=== PATIENT | female | born 2000 | race African-American/Black ===

== ENCOUNTER 2021-10-16 17:31 | Emergency (ER) | payer OTHER ==
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
--- NOTE | 2021-10-16 17:43 | EDPHYS ---
Physician Documentation [facility] Name: Martha Mccracken Age: 20 yrs Sex: Female : 2000 Arrival Date: 10/16/2021 Time: 17:32 Bed Waiting Private MD: ED Physician Rolando Beckman HPI: 10/16 20:18 This 20 yrs old Black Female presents to ER via Ambulatory with complaints of Itching, kb Hives. 20:18 The patient's rash thought to be caused by allergies. The rash is located on the left kb arm and right arm and face. Onset: The symptoms/episode began/occurred just prior to arrival. Associated signs and symptoms: Pertinent positives: itching, Pertinent negatives: burning sensation, difficulty breathing, fever, nausea, Pain swelling of lips, swelling of throat, swelling of tongue, vomiting, wheezing. Severity of symptoms: At their worst the symptoms were mild in the emergency department the symptoms are unchanged. The patient has not experienced similar symptoms in the past. The patient has not recently seen a physician. Pt reports she used a blower at the [employer] plant, developed a rash and itching so she came in. States she has never had an allergic reaction before so she was concerned about it getting worse. 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 - Social history:: Smoking status: Patient reports the use of cigarette tobacco products, smokes one-half pack cigarettes per day. ROS: 20:17 Constitutional: Negative for fever, chills, and weight loss. kb 20:17 Skin: Positive for rash, of the face, right arm and left arm. 20:17 All other systems are negative. Exam: 20:17 Constitutional: This is a well developed, well nourished patient who is awake, alert, kb and in no acute distress. Head/Face: Normocephalic, atraumatic. ENT: Moist Mucous membranes Respiratory: Respirations even and unlabored. No increased work of breathing. Talking in full sentences MS/ Extremity: Pulses equal, no cyanosis. Neurovascular intact. Full, normal range of motion. Neuro: Awake and alert, GCS 15, oriented to person, place, time, and situation. Moves all extremities. Normal gait. Psych: Awake, alert, with orientation to person, place and time. Behavior, mood, and affect are within normal limits. 20:17 Skin: rash a mild rash is noted, rash can be described as nonspecific, on the face, right arm and left arm. Vital Signs: 17:38 BP 168 / 100; Pulse 84; Resp 18; Temp 98.8; Pulse Ox 100% ; Weight 56.25 kg; Height 5 ap3 ft. 2 in. (157.48 cm); 17:38 Body Mass Index 22.68 (56.25 kg, 157.48 cm) ap3 MDM: 17:41 Patient medically screened. kb 20:15 Data reviewed: vital signs, nurses notes. Data interpreted: Pulse oximetry: on room air kb is 100 %. Interpretation: normal. Counseling: I had a detailed discussion with the patient and/or guardian regarding: the historical points, exam findings, and any diagnostic results supporting the discharge/admit diagnosis, the need for outpatient follow up, a family practitioner, to return to the emergency department if symptoms worsen or persist or if there are any questions or concerns that arise at home. Administered Medications: No medications were administered Disposition Summary: 10/16/21 17:42 Discharge Ordered Location: Home kb Condition: Stable kb Diagnosis - Rash and other nonspecific skin eruption kb Followup: kb - With: Emergency Department - When: As needed - Reason: Worsening of condition Followup: kb - With: Private Physician - When: 2 - 3 days - Reason: Recheck today's complaints, Continuance of care, Re-evaluation by your physician Discharge Instructions: - Discharge Summary Sheet kb - Rash, Adult, [id number] kb - Allergies, Adult, Ancr-gk-Czty kb Forms: - Medication Reconciliation Form kb - Thank You Letter kb - Antibiotic Education kb - Prescription Opioid Use kb - Work release form ap3 Prescriptions: - Pepcid 20 mg Oral Tablet - take 1 tablet by ORAL route every 12 hours for 5 days; 10 tablet; Refills: 0, kb Product Selection Permitted - Prednisone 20 mg Oral Tablet - take 1 tablet by ORAL route once daily for 5 days; 5 tablet; Refills: 0, kb Product Selection Permitted Signatures: Gianna Brooks FNP-C FNP-Ckb Amna Romero, RN RN ap3
--- NOTE | 2021-10-16 17:43 | ER ---
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 She states that approx 15 minutes into the work she began getting itchy and noticing changes on her skin. Coronavirus screen: At this time, the client does not indicate any symptoms associated with coronavirus-19. Ebola Screen: No symptoms or risks identified at this time. Onset: The symptoms/episode began/occurred today. Anaphylaxis evaluation, no signs or symptoms of anaphylaxis were noted. Initial Sepsis Screen: Does the patient meet any 2 criteria? No. Patient's initial sepsis screen is negative. Does the patient have a suspected source of infection? No. Patient's initial sepsis screen is negative. Risk Assessment: Do you want to hurt yourself or someone else? Patient reports no desire to harm self or others. Onset of symptoms was October 16, 2021. 17:38 Method Of Arrival: Ambulatory ap3 17:38 Acuity: ЕЛЕНА 4 ap3 Triage Assessment: 17:42 General: Appears in no apparent distress. Behavior is calm, cooperative, appropriate ap3 for age. Pain: Denies pain. Neuro: Level of Consciousness is awake, alert, obeys commands, Oriented to person, place, time, situation. Cardiovascular: Patient's skin is warm and dry. Respiratory: Airway is patent Respiratory effort is even, unlabored, Respiratory pattern is regular, symmetrical. Derm: Rash noted that is itchy. 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 - Social history:: Smoking status: Patient reports the use of cigarette tobacco products, smokes one-half pack cigarettes per day. Screenin:41 Abuse screen: Denies threats or abuse. Nutritional screening: No deficits noted. ap3 Tuberculosis screening: No symptoms or risk factors identified. 17:43 Fall Risk None identified. ap3 Assessment: 17:41 Respiratory: Airway is patent Respiratory effort is even, unlabored, Breath sounds are ap3 clear. Vital Signs: 17:38 BP 168 / 100; Pulse 84; Resp 18; Temp 98.8; Pulse Ox 100% ; Weight 56.25 kg; Height 5 ap3 ft. 2 in. (157.48 cm); 17:38 Body Mass Index 22.68 (56.25 kg, 157.48 cm) ap3 ED Course: 17:32 Patient arrived in ED. as 17:35 Gianna Brooks FNP-C [facility]. kb 17:35 Rolando Beckman MD is Attending Physician. kb 17:41 Triage completed. ap3 17:42 Arm band placed on right wrist. ap3 17:42 No provider procedures requiring assistance completed. Patient did not have IV access ap3 during this emergency room visit. 17:43 Patient has correct armband on for positive identification. Bed in low position. Call ap3 light in reach. Pulse ox on. NIBP on. Administered Medications: No medications were administered Medication: 17:43 VIS not applicable for this client. ap3 Outcome: 17:42 Discharge ordered by . kb 18:03 Discharged to home ambulatory. ap3 18:03 Condition: good 18:03 Discharge instructions given to patient. 18:03 Patient left the ED. ap3 Signatures: Gianna Brooks FNP-C FNP-Ckb Martinez, Amelia as Prokisch, Amanda, RN RN ap3
[2021-10-16 18:41] VITALS: BP 168/100; TEMP 98.8; O2SAT 100
== END 2021-10-16 18:03 | disposition home or self-care (01) ==
LOC: ER 17:31
DX: R21 Rash and other nonspecific skin eruption (principal); F17.210 Nicotine dependence, cigarettes, uncomplicated
CPT/HCPCS: 99283

== ENCOUNTER 2021-11-06 18:55 | Emergency (ER) | payer OTHER ==
--- OUTSIDE RECORDS SUMMARY | 2021-11-06 18:59 | XMS REPORT | Continuity of Care Document ---
:2000 Author Organization [facility] t Address [address] [place] [address] Care Team Providers Name Role Phone [email or web address] Attending Clinician Unavailable Mary Kay Vasquez Attending Clinician [phone] Spike Santacruz Attending Clinician Unavailable Elisabet Bartholomew Attending Clinician [phone] Patricia Villela Attending Clinician Unavailable Kim Gamboa Attending Clinician Unavailable Ernesto Encarnacion Attending Clinician Unavailable Jeremiah Quintero Admitting Clinician Unavailable Mary Kay Vasquez Unavailable [phone] Payers Payer Name Policy Type Policy Number Effective Date Expiration Date S cary Self Pay P [id number] 2021 00:00:00 Self Pay P [id number] 2020 00:00:00 Problems Condition Condition Condition Status Onset Resolution Last Treating Co mments Source Name Details Category Date Date Treatment Clinician Date PROBLEM Condition Active 2019-11-13 Stefan Vasquez R/T 11-12 15:39:16 Mary Kay Reyesi ACCESS, 00:00: ty OTHER 00 Health HELPING AGENCIES BIPOLAR Condition Active 2019-10-01 Stefan Vasquez AND 09-30 18:07:58 [facility]ica Communi RELATED 00:00: ty DISORDER, 00 Health OTHER SPECIFIED SLEEP-WAKE Condition Active 2019-10-01 Stefan Vasquez DISORDER, 09-30 18:07:58 Vic[facility] Comm uni OTHER 00:00: ty SPECIFIED 00 Health NONADHEREN Condition Active 2019-09-10 Stefan Vasquez CE TO 09-09 14:27:47 Vica Erici MEDICAL 00:00: ty TREATMENT 00 Health Allergies, Adverse Reactions, Alerts Allergy Allergy Status Severity Reaction(s) Onset Inactive Treating Comm ents Source Name Type Date Date Clinician Gailfis Propensi [facility] Cont[facility] adverse 00:00: Medical ng reaction 00 Center Products s SHELLFIS Allergy Active [facility] CONTAINI 00:00: Medical NG 00 Center PRODUCTS No Known DA Active [facility]19 [place] s 00:[facility] [address] No Known DA Active [facility] 1-19 [place] [facility] 00:[facility]: [facility] [address] shellfis DA Active [facility] [place] NO KNOWN Allergy Active [facility] Social History Social Habit Start Date Stop Date Quantity Comments Source History SDOH Alcohol [facility] History of tobacco Cigarette [facility] History SDOH Alcohol [facility] History SDOH Alcohol [facility] History SDOH Alcohol 2020-09-19 2020-09-[address] [facility] Comment 00:00:00 00:00:00 Medical Center Cigarettes smoked 2020-09-19 2020-09-[address] [facility] current (pack per 00:00:00 00:00:00 Medical Center day) - Reported Tobacco use and 2020-09-19 2020-09-[address] [facility] k[facility] exposure 00:00:00 00:00:00 Medical Center Alcohol intake 2020-09-19 2020-09-19 Current drinker ELOY Castillo 00:00:00 00:00:00 of alcohol Medical Center ([facility] social history 2019-11-13 2019-11-13 reviewed today [facility] [...] she has stopped Not homeless. Born in [facility]. City: [place] . State: [place]. Pt. stated that she and her mother live together in a house. 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 Highest education level: high school graduate. Pt. recently started working at [employer]. Pt. stated that she also goes to school. Pt stated that she graduated from [employer] in 2016. Pt. stated that she is presently going to school at [employer]. Sexually Active: No. Mother stated that when pt. was 11 CPS involvement. CPS case was closed. BF was the one who contacted CPS. CPS case was closed after the first visit. drug use, illicit 2019-11-13 2019-11-13 Currently [facility] 12:47:24 12:47:24 Health alcohol use 2019-11-13 2019-11-13 [facility] 12:47:24 12:47:24 Health smoking, advice to 2019-11-13 2019-11-13 Yes [facility] quit 12:47:24 12:47:24 Health home/family 2019-10-01 2019-10-01 Pt. stated that [facility] situation, 12:25:37 12:25:37 she and her Health assessment mother live together in a house. Suicide Addendum 2019-10-01 2019-10-01 stay with family [facility] Question 12, plans 12:25:37 12:25:37 , write [...] 5, means 12:25:37 12:25:37 Health and availability Suicide Addendum 2019-10-01 2019-10-01 No [facility] Question 4, plan for 12:25:37 12:25:37 Heal th suicide Suicide Addendum 2019-10-01 2019-10-01 Yes [facility] Question 3, try to 12:25:37 12:25:37 Health resolve or see other solution Suicide Addendum 2019-10-01 2019-10-01 Yes [facility] Question 1, thoughts 12:25:37 12:25:37 Heal th of harming yourself family support 2017-08-02 2017-08-02 [facility] 14:[facility] 14:16:08 she lives with Health her mother. She moved back in with her around November of 2016. Pt. stated that she has two sisters and one brother. Only brother lives with them (21). she has stopped Sex Assigned At 2000 [address] [facility] [address] [facility] 00:00:00 00:00:00 Medical Center Smoking Status Start Date Stop Date Source Current every day smoker 2020-09-19 00:00:00 [facility] Occasional tobacco smoker 2019-11-13 12:47:24 [facility] (finding) Medications Ordered Filled Start Stop [...] kg blood pressure, 2017-08-02 14:16:08 90 mm[Hg] [facility] diastolic Health blood pressure, 2017-08-02 14:16:08 134 mm[Hg] [facility] systolic Health pulse rate 2017-08-02 14:16:08 75 /min [facility] weight E&M 2017-08-02 14:16:08 116 [lb_av] [facility] weight in kilograms 2017-08-02 14:16:08 52.73 kg [facility] E& Health height in 2017-08-02 14:16:08 157.48 cm [facility] centimeters E&M Health weight percentile 2017-08-02 14:16:08 30 [facility] height percentile 2017-08-02 14:16:08 19 [facility] Procedures Procedure Date / Time Performed Performing Clinician Sour e Diagnostic evaluation 2017-08-03 15:59:23 Mary Kay Vasquez [facility] with medical - [id number] Health Plan of Care Planned Activity Planned Date Details Comments Source Future Scheduled 2021-11-11 INFLUENZA VACCINE (#1) [facility] 00:00[facility]00 [code = INFLUENZA Medical Ce nter VACCINE (#1)] Future Scheduled 2021-03-[address] [facility] Test 00:00:00 (12+) [code = Medical Center DEPRESSION SCREENING (12+)] Future Scheduled 2019-11-[address] [facility] Test 00:00:00 malignant neoplasm of Medica l Center cervix (procedure) [code = 822617214] Future Scheduled [address] [facility] Test 00:00:00 (procedure) [code = Medical Center [id number]] Future Scheduled 2017 DTAP/TDAP/TD VACCINES [facility] 00:00:00 (1 - Tdap) [code = Medical C enter DTAP/TDAP/TD VACCINES (1 - Tdap)] Future Scheduled 2016 HEPATITIS C SCREENING [facility] 00:00:00 [code = HEPATITIS C Medical Center SCREENING] Future Scheduled [address] [facility] Test 00:00:00 0-64 YRS (1 - PCV) Medical C enter [code = PNEUMOCOCCAL VACCINE 0-64 YRS (1 - PCV)] Future Scheduled 2003-11-19 COVID-19 VACCINE (#1) [facility] Test 00:00:00 [code = COVID-[address] VACCINE (#1)] Encounters Start End Encounter Admission Attending Care Care Encounter Source Date/Time Date/Time Type Type Clinicians Facility Department ID 2021-07-21 Outpatient [email or web address] [facility] [id number] [facility] 10:55:04 [facility] 2021-05-19 Outpatient [email or web address] [facility] [id number] - [facility] 14:58:10 [facility] 2021-05-18 Outpatient [email or web address] [facility] [id number] [facility] 13:18:05 [facility] 2020-12-24 Outpatient [email or web address] [facility] [id number] [facility] 20:39:38 [facility] 2020-12-24 Outpatient [email or web address] [facility] [id number] [facility] 20:11:35 [id number] [facility] 2020-12-24 Outpatient [email or web address] [facility] [id number] - [facility] 18:57:36 [id number] [facility] 2020-12-24 Outpatient [email or web address] [facility] [id number] [facility] 18:38:07 [id number] [facility] 2020-12-24 Outpatient [email or web address] [facility] [id number] [facility] 18:22:35 [id number] [facility] 2020-12-24 Outpatient [email or web address] [facility] [id number] [facility] 18:19:42 [id number] [facility] 2020-12-24 Outpatient [email or web address] [facility] [id number] [facility] 18:06:36 [id number] [facility] 2020-12-24 Outpatient [email or web address] [facility] [id number] [facility] 17:33:30 [id number] [facility] 2020-12-[email or web address] [id number] [facility] 17:18:16 [id number] [facility] 2019-07-09 Inpatient HCANW SARI [id number] [facility] 21:31:00 [id number] [facility] 2019-03-31 Inpatient HCANW SARI [id number] [facility] 19:38:00 [id number] [facility] 2018-11-19 Outpatient MHNW MHNW [id number] MH NW 10:38:19 2020-09-19 2020-09-19 Emergency ER [facility] Emergency [id number] [facility] 17:07:00 17:07:00 2019-11-13 2019-11-13 Office CJ Vasquez [facility] Encounte r/ Legacy 00:00:00 00:00:00 Visit Mary Kay [id number] Com patrick [id number] [facility] 2019-10-11 2019-10-11 Office CJ Vasuqez [facility] Encounte r/ [facility] 00:00:00 00:00:00 Visit Mary Kay [id number] Com patrick [id number] [facility] 2019-10-11 2019-10-11 Office CJ Vasquez Encounte r/ [facility] 00:00:00 00:00:00 Visit Mary Kay [id number] Com patrick [id number] [facility] 2019-10-09 2019-10-09 Office Mary Kay Vasquez [facility] Encounter/ Legacy 00:00:00 00:00:00 Visit Spike Santacruz [id number] [address] [place] [address] [id number] [facility] 2019-10-02 2019-10-02 Office PumaCJ [facility] Encounter/ Legacy 00:00:00 00:00:00 Visit Elisabet [id number] Com patrick [id number] ty Health 2019-10-01 2019-10-01 [facility] 00:00:00 00:00:00 Visit Mary Kay [id number] Com patrick [id number] ty Health 2019-09-10 2019-09-10 Office [facility]/ [facility] 00:00:00 00:00:00 Visit Mary Kay [id number] Com patrick [id number] ty Health 2019-07-29 2019-07-29 Office [facility] En[facility]/ [facility] 00:00:00 00:00:00 Visit Elisabet [id number] Com patrick [id number] ty Health 2017-11-01 2017-11-01 Office [facility] Encounter/ [facility] 00:00:00 00:00:00 Visit Elisabet [id number] Com patrick [id number] ty Health 2017-10-11 2017-10-11 Office Bartholomew [facility] Encounter/ Legacy 00:00:00 00:00:00 Visit Elisabet [id number] Com patrick [id number] ty [facility] 2017-08-02 2017-08-02 Office Mary Kay Vasquez [facility] Encounter/ Legacy 00:00:00 00:00:00 Visit Patricia Villela [id number] [id number] ty Health 2017-06-19 2017-06-19 Office [facility] En[facility] / [facility] 00:00:00 00:00:00 Visit Kim [id number] Co mmuni [id number] ty Health 2017-06-15 2017-06-15 Office Shashank [facility] Encounter/ Legacy 00:00:00 00:00:00 Visit Ernesto [id number] Co mmuni [id number] [facility] Results Test Description Test Time Test Comments Results Result [facility] e Comments - XR L-SPINE 2019-03-31 Patient Name: 4+VIEWS 20:08:00 JAMESMARTHA Unit No: [id number] EXAMS: CPT: [id number] XR L-SPINE 4+VIEWS 70918 XR LUMBAR SPINE, 5 VIEWS HISTORY: Pain COMPARISON: None FINDINGS: Five lumbar type vertebral bodies are present. Vertebral body heights and disc spaces are maintained. No anterolisthesis is identified. No definite pars defects are seen. IMPRESSION: 1. Unremarkable lumbar series. at 2008 Reported and signed by: Lucila Londono MD CC: Ollie Hernandez Technologist: Patricia Torres Time: DAP (Gy m2): Air Kerma (mGy): Trscr Dt/Tm: 03/31/2019 (2007) by:[email or web address] Orig Print D/T: S: 03/31/2019 (2010) BATCH NO: N/A Name: MARTHA RAMIREZ [facility] Phys: INOCENTE. Ollie Hernandez APR [address] [place] : 2000 Age: 18 Sex: [place] [address] Loc: N.ERS Exam Date: 03/31/2019 Status: PRE ER PH: FAX: PAGE 1 Signed Report - XR HAND 3 + V LT 2018-07-06 Patient Name: 16:22:00 MARTHA RAMRIEZ Unit No: [id number] EXAMS: CPT CODE: [id number] XR HAND 3 + [place] [id number] LEFT HAND 3 VIEWS 07/06/2018 COMPARISON: None [...] (1622) [email or web address] Orig Print D/T: S: 07/06/2018 (7326) [facility] NAME: MARTHA RAMIREZ Radiology Department PHYS: Mayela Sexton [address] : 2000 AGE: 17 SEX: F [place], [place] [address] LOC: KRISSY PHONE #: [phone] EXAM DATE: 07/06/2018 STATUS: REG ER FAX #: [phone] RAD NO: Page 1 Signed Report - XR CHEST 1 V 2018-07-06 Patient Name: 16:06:00 MARTHA RAMIREZ Unit No: [id number] EXAMS: CPT CODE: [id number] XR CHEST 1 V [id number] CHEST 1 VIEW: 07/06/2018 COMPARISON: NONE CLINICAL [...] Land MD; Jeremiah Quintero MD Technologist: Karen Aleln, RT, CT Trnscrbd D/ (1601) [email or web address] Orig Print D/T: S: 07/06/2018 (1601) [facility] NAME: MARTHA RAMIREZ Radiology Department PHYS: Mayela Sexton [address] : 2000 AGE: 17 SEX: F [place], [place] [address] LOC: DebiERS PHONE #: [phone] EXAM DATE: 07/06/2018 STATUS: REG ER FAX #: [phone] RAD NO: Page 1 Signed Report XR Hand Complete 2018-05-19 Patient: MARTHA RAMIREZ 3+ Views Left 17:55:02 EMETERIO Date/Time05/19/2018 17:16 CSTReason for ExamFractureReportLOC ATION: [id number]: 17-year-old female who injured her left hand.COMMENT:Frontal, [...] patient's left hand. Final Dictated by: MD Arriaga Robert LDictated DT/TM: 05/19/2018 5:54 pmSigned by: MD Arriaga Robert LSigned (Electronic Signature): 05/19/2018 5:55 pm
[2021-11-06] MEDS ORDERED: IBUPROFEN 200 MG TAB PO ONE (19:33)
[2021-11-06] MEDS ORDERED: HYDROCODONE/APAP 7.5/325 MG TAB ONE (19:33)
--- NOTE | 2021-11-06 19:59 | RAD REPORT ---
EXAM DESCRIPTION: CT - Spine Lumbar Wo Con - 11/06/2021 7:51 pm CLINICAL HISTORY: pain COMPARISON: Thoracic Spine W/o Cont dated 11/06/2021 TECHNIQUE: Axial noncontrast CT imaging of the lumbar spine was performed with coronal and sagittal re-formatted images. All CT scans are performed using dose optimization technique as appropriate and may include automated exposure control or mA/KV adjustment according to patient size. FINDINGS: No acute lumbar spine fracture seen. No aggressive marrow pattern or malalignment. Numerous renal cysts of varying complexity. Intervertebral disc disease assessment is inherently limited by CT. Within these limitations, no high -grade canal stenosis suspected. IMPRESSION: No acute fracture of the lumbar spine. Numerous renal cysts of varying complexity may be secondary to polycystic kidney disease. Consider MRI follow-up for assessment of disc disease if clinically desired.
--- NOTE | 2021-11-06 20:07 | RAD REPORT ---
EXAM DESCRIPTION: CT - Thoracic Spine W/o Cont - 11/06/2021 7:52 pm CLINICAL HISTORY: pain COMPARISON: No comparisons TECHNIQUE: Axial CT imaging through the thoracic spine was performed with coronal and sagittal re-fo rmatted images. All CT scans are performed using dose optimization technique as appropriate and may include automated exposure control or mA/KV adjustment according to patient size. FINDINGS: Vertebral body heights and disc spaces are maintained. A compression fracture is not prese nt. No significant disc space narrowing. Thoracic spine alignment is within normal limits. Renal lesions likely representing cysts of varying complexity. Intervertebral disc detail is inherently limited on CT without gross findings of canal compromise. IMPRESSION: No fracture of the thoracic spine. No acute findings.
--- NOTE | 2021-11-06 21:08 | EDPHYS ---
Physician Documentation [facility] Name: Martha Mccracken Age: 20 yrs Sex: Female : 2000 Arrival Date: 11/06/2021 Time: 18:57 Bed 16 Private MD: ED Physician Sebastian Spain HPI: 11/06 19:54 This 20 yrs old Black Female presents to ER via Wheelchair with complaints of Pain All kb Over. 19:54 The patient presents with pain that is acute, with no known mechanism of injury. The kb symptoms are located in the thoracic area and lumbar area. Onset: The symptoms/episode began/occurred 2 day(s) ago. The pain radiates to the right leg and left leg. Associated signs and symptoms: Pertinent negatives: incontinence, numbness, tingling, urinary retention. The problem was sustained without known cause. Modifying factors: The patient symptoms are alleviated by nothing, the patient symptoms are aggravated by any movement. Severity of symptoms: At their worst the symptoms were moderate, in the emergency department the symptoms are unchanged. The patient has experienced similar episodes in the past, multiple times. The patient has not recently seen a physician. Pt reports she woke up with back pain 2 days ago. States pain radiates down both legs. Has had pain like this several times before due to scoliosis, this time is worse. Historical: - Allergies: 19:15 No Known Allergies; hb - PMHx: 19:15 Scoliosis; hb - Immunization history:: Adult Immunizations up to date. - Social history:: Smoking status: Patient denies any tobacco usage or history of. ROS: 19:52 Constitutional: Negative for fever, chills, and weight loss. kb 19:52 Back: Positive for pain at rest, pain with movement, radiated pain, of the thoracic area and lumbar area. 19:52 All other systems are negative. Exam: 19:52 Constitutional: This is a well developed, well nourished patient who is awake, alert, kb and in no acute distress. Head/Face: Normocephalic, atraumatic. ENT: Moist Mucous membranes Cardiovascular: Regular rate and rhythm with a normal S1 and S2. No gallops, murmurs, or rubs. No pulse deficits. Respiratory: Respirations even and unlabored. No increased work of breathing. Talking in full sentences Abdomen/GI: Soft, non-tender. No distention Skin: Warm, dry with normal turgor. Normal color. MS/ Extremity: Pulses equal, no cyanosis. Neurovascular intact. Full, normal range of motion. Neuro: Awake and alert, GCS 15, oriented to person, place, time, and situation. Moves all extremities. Normal gait. Psych: Awake, alert, with orientation to person, place and time. Behavior, mood, and affect are within normal limits. 19:52 Back: pain, that is moderate, of the thoracic area and lumbar area, ROM is painful, scoliosis Vital Signs: 19:13 BP 134 / 103; Pulse 96; Resp 16; Temp 98.1; Pulse Ox 100% on R/A; Weight 56.7 kg; hb Height 5 ft. 3 in. (160.02 cm); Pain 10/10; 21:20 BP 135 / 92; Pulse 66; Resp 16; Pulse Ox 99% on R/A; jb4 19:13 Body Mass Index 22.14 (56.70 kg, 160.02 cm) hb MDM: 19:13 Patient medically screened. kb 19:54 Data reviewed: vital signs, nurses notes. Data interpreted: Pulse oximetry: on room air kb is 100 %. Interpretation: normal. 21:07 Counseling: I had a detailed discussion with the patient and/or guardian regarding: the kb historical points, exam findings, and any diagnostic results supporting the discharge/admit diagnosis, radiology results, the need for outpatient follow up, a family practitioner, to return to the emergency department if symptoms worsen or persist or if there are any questions or concerns that arise at home. 11/06 19:16 Order name: Thoracic Spine WO Cont CT; Complete Time: 20:08 kb 11/06 19:16 Order name: CT Lumbar Spine Wo Con; Complete Time: 20:08 kb Administered Medications: 19:28 Drug: Roe (HYDROcodone-acetaminophen) (7.5 mg-325 mg) 1 tabs Route: PO; jb4 21:21 Follow up: Response: No adverse reaction; Marked relief of symptoms; Pain is decreased jb4 19:28 Drug: Ibuprofen 600 mg Route: PO; jb4 21:21 Follow up: Response: No adverse reaction; Marked relief of symptoms; Pain is decreased jb4 Disposition: 21:59 Co-signature as Attending Physician, Sebastian Spain MD I agree with the assessment and kdr plan of care. Disposition Summary: 11/06/21 21:07 Discharge Ordered Location: Home kb Condition: Stable kb Diagnosis - Low back pain kb Followup: kb - With: Emergency Department - When: As needed - Reason: Worsening of condition Followup: kb - With: Private Physician - When: 2 - 3 days - Reason: Recheck today's complaints, Continuance of care, Re-evaluation by your physician Discharge Instructions: - Discharge Summary Sheet kb - Acute Back Pain, Adult kb Forms: - Medication Reconciliation Form kb - Thank You Letter kb - Antibiotic Education kb - Prescription Opioid Use kb Prescriptions: - Cyclobenzaprine 10 mg Oral Tablet - take 1 tablet by ORAL route every 8 hours As needed; 15 tablet; Refills: 0, kb Product Selection Permitted - Diclofenac Sodium 75 mg Oral tablet,delayed release (DR/EC) - take 1 tablet by ORAL route 2 times per day As needed; 30 tablet; Refills: 0, kb Product Selection Permitted Signatures: Dispatcher [employer] EDMS Gianna Brooks, REMEDY DEVELOPER-C REMEDY DEVELOPER-Sebastian Wright MD MD [facility] Yokasta Orellana, RN RN Austen Bryan RN RN jb4
--- NOTE | 2021-11-06 21:08 | ER ---
Nurse's Notes [facility] Name: Martha Mccracken Age: 20 yrs Sex: Female : 2000 Arrival Date: 11/06/2021 Time: 18:57 Bed 16 Private MD: Diagnosis: Low back pain Presentation: 11/06 19:13 Chief complaint: Low back pain 10/10 that radiates to bilateral legs x 2 days. hb Coronavirus screen: At this time, the client does not indicate any symptoms associated with coronavirus-19. Ebola Screen: No symptoms or risks identified at this time. Initial Sepsis Screen: Does the patient meet any 2 criteria? No. Patient's initial sepsis screen is negative. Does the patient have a suspected source of infection? No. Patient's initial sepsis screen is negative. Risk Assessment: Do you want to hurt yourself or someone else? Patient reports no desire to harm self or others. Onset of symptoms was November 05, 2021. 19:13 Method Of Arrival: Wheelchair hb 19:13 Acuity: ЕЛЕНА 3 hb Historical: - Allergies: 19:15 No Known Allergies; hb - PMHx: 19:15 Scoliosis; hb - Immunization history:: Adult Immunizations up to date. - Social history:: Smoking status: Patient denies any tobacco usage or history of. Screenin:31 Abuse screen: Denies threats or abuse. Nutritional screening: No deficits noted. jb4 Tuberculosis screening: No symptoms or risk factors identified. Fall Risk None identified. Assessment: 19:31 General: Appears in no apparent distress. uncomfortable, Behavior is calm, cooperative, jb4 appropriate for age. Pain: Complains of pain in gluteal cleft Pain does not radiate. Pain currently is 10 out of 10 on a pain scale. Neuro: Level of Consciousness is awake, alert, obeys commands, Oriented to person, place, time, situation. Cardiovascular: Patient's skin is warm and dry. Respiratory: Airway is patent Respiratory effort is even, unlabored, Respiratory pattern is regular, symmetrical. GI: No signs and/or symptoms were reported involving the gastrointestinal system. : No signs and/or symptoms were reported regarding the genitourinary system. EENT: No signs and/or symptoms were reported regarding the EENT system. Derm: Skin is intact, Skin is dry, Skin is normal, Skin temperature is warm. Musculoskeletal: Circulation, motion, and sensation intact. Range of motion: intact in all extremities. 20:48 Reassessment: Patient appears in no apparent distress at this time. Patient and/or jb4 family updated on plan of care and expected duration. Pain level reassessed. Patient is alert, oriented x 3, equal unlabored respirations, skin warm/dry/pink. Pt reports feeling better. Is no longer crying, is now able to sit and lie on her back. 21:20 Reassessment: Patient appears in no apparent distress at this time. Patient and/or jb4 family updated on plan of care and expected duration. Pain level reassessed. Patient is alert, oriented x 3, equal unlabored respirations, skin warm/dry/pink. Vital Signs: 19:13 BP 134 / 103; Pulse 96; Resp 16; Temp 98.1; Pulse Ox 100% on R/A; Weight 56.7 kg; hb Height 5 ft. 3 in. (160.02 cm); Pain 10/10; 21:20 BP 135 / 92; Pulse 66; Resp 16; Pulse Ox 99% on R/A; jb4 19:13 Body Mass Index 22.14 (56.70 kg, 160.02 cm) hb ED Course: 18:57 Patient arrived in ED. rg4 19:13 [facility] kb 19:13 Sebastian Spain MD is Attending Physician. kb 19:15 Triage completed. hb 19:15 Arm band placed on. hb 19:31 Patient has correct armband on for positive identification. Bed in low position. Call jb4 light in reach. Side rails up X 1. 19:[address] Spine WO Cont CT In Process Unspecified. EDMS 19:53 CT Lumbar Spine Wo Con In Process Unspecified. EDMS 20:48 Austen Bryan, TENA is Primary Nurse. jb4 21:20 No provider procedures requiring assistance completed. Patient did not have IV access jb4 during this emergency room visit. Administered Medications: 19:28 Drug: [place] (HYDROcodone-acetaminophen) (7.5 mg-325 mg) 1 tabs Route: PO; jb4 21:21 Follow up: Response: No adverse reaction; Marked relief of symptoms; Pain is decreased jb4 19:28 Drug: Ibuprofen 600 mg Route: PO; jb4 21:21 Follow up: Response: No adverse reaction; Marked relief of symptoms; Pain is decreased jb4 Medication: 19:31 VIS not applicable for this client. jb4 Outcome: 21:07 Discharge ordered by . linda 21:20 Discharged to home ambulatory, with friend. jb4 21:20 Condition: stable 21:20 Discharge instructions given to patient, Instructed on discharge instructions, follow up and referral plans. no drinking with medication, no driving heavy equipment, medication usage, Demonstrated understanding of instructions, follow-up care, medications, Prescriptions given X 2. 21:21 Patient left the ED. jb4 Signatures: Dispatcher [employer] EDMS Gianna Brooks, TUNE UP MECHANIC-C TUNE UP MECHANIC-Yokasta Obando, RN RN Purnima Driver rg4 Austen Bryan, RN RN jb4
[2021-11-07 00:32] VITALS: TEMP 98.1
[2021-11-07 00:34] VITALS: BP 135/92; O2SAT 99
== END 2021-11-06 21:21 | disposition home or self-care (01) ==
LOC: ER 18:55
DX: M54.50 Low back pain, unspecified (principal)
CPT/HCPCS: 72128; 72131; 99283

== ENCOUNTER 2022-03-07 07:36 | Emergency (ER) | payer OTHER ==
--- OUTSIDE RECORDS SUMMARY | 2022-03-07 07:40 | XMS REPORT | Continuity of Care Document ---
:2000 Author Organization [facility] t Address [address] [place] [address] Care Team Providers Name Role Phone Mary Kay Vasquez Attending Clinician [phone] Spike Santacruz Attending Clinician Unavailable Elisabet Bartholomew Attending Clinician [phone] Patricia Villela Attending Clinician Unavailable Kim Gamboa Attending Clinician Unavailable Ernesto Encarnacion Attending Clinician Unavailable Jeremiah Quintero Admitting Clinician Unavailable Mary Kay Vasquez Unavailable [id number] Payers Payer Name Policy Type Policy Number Effective Date Expiration Date S ource Problems Condition Condition Condition Status Onset Resolution Last Treating Co mments Source Name Details Category Date Date Treatment Clinician Date PROBLEM Condition Active 2019-11-13 Stefan Vasquez R/T 11-12 15:39:16 Mary Kay Garcia ACCESS, 00:00: ty OTHER 00 Health HELPING AGENCIES BIPOLAR Condition Active 2019-10-01 Miles Vasquez 09-30 18:07:58 [facility] RELATED 00:00: ty DISORDER, 00 Health OTHER SPECIFIED SLEEP-WAKE Condition Active 2019-10-01 Stefan Vasquez DISORDER, 09-30 18:07:58 [facility] OTHER 00:00: ty SPECIFIED 00 Health NONADHEREN Condition Active 2019-09-10 Stefan Vasquez CE TO 09-09 14:27:47 Mary Kay Communi MEDICAL 00:00: ty TREATMENT 00 Health Allergies, Adverse Reactions, Alerts Allergy Allergy Status Severity Reaction(s) Onset Inactive Treating Comm ents Source Name Type Date Date Clinician SHELLFIS [facility]:00: Medical NG 00 Center PRODUCTS Shellfis Propensi Active [facility] Contain[facility] adverse 00:00: Medical ng reaction 00 Center Products s Shellfis Propensi [facility] Cont[facility] adverse 00:00: Medical ng reaction 00 Center Products s No Known DA Active [facility] [place] [facility] [address] No Known DA Active U 0 [facility] 00:[facility]: [facility] [address] shellfis DA Active [facility] 00 [facility] NO KNOWN Allergy Active [facility] Social History Social Habit Start Date Stop Date Quantity Comments Source History SDOH Alcohol [facility] History SDOH Alcohol [facility] History SDOH Alcohol [facility] History of tobacco Cigarette Smoker [facility] History SDOH Alcohol 2020-09-19 2020-09-[address] [facility] Comment 00:00:00 00:00:00 Medical Center Cigarettes smoked 2020-09-19 2020-09-[address] [facility] current (pack per 00:00:00 00:00:00 Medical Center day) - Reported Tobacco use and 2020-09-19 2020-09-[address] [facility] exposure 00:00:00 00:00:00 Medical Center Alcohol intake 2020-09-192020-09-19 Current drinker ELOY Castillo 00:00:00 00:00:00 of [facility] social history 2019-11-13 2019-11-13 reviewed today [facility] reviewed E&M 12:47:24 12:47:24 Health social history E&M 2019-11-13 2019-11-13 Single. Pt. [facility] 12:47:24 12:47:24 stated that she Health lives with her mother. She moved back in with her around November of 2016. Pt. stated that she has two sisters and one brother. Only brother lives with them (21). she has stopped Not homeless. Born in [facility]. City: [place] . State: [place]. Pt. stated that she and her mother live together in a house. 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 Highest education level: high school graduate. Pt. recently started working at [employer]. Pt. stated that she also goes to school. Pt stated that she graduated from [employer] in 2016. Pt. stated that she is presently going to school at [employer]. Sexually Active: No. Mother stated that when pt. was 11 CPS involvement. CPS case was closed. was the one who contacted CPS. CPS case was closed after the first visit. drug use, illicit 2019-11-13 2019-11-13 Currently [facility] 12:47:24 12:47:24 Health alcohol use 2019-11-13 2019-11-13 Currently [facility] ity 12:47:24 12:47:24 Health smoking, advice to 2019-11-13 2019-11-13 Yes [facility] quit 12:47:24 12:47:24 Health home/family 2019-10-01 2019-10-01 Pt. stated that [facility] situation, 12:25:37 12:25:37 she and her Health assessment mother live together in a house. Suicide Addendum 2019-10-01 2019-10-01 stay with family [facility] Question 12, plans 12:25:37 12:25:37 , [...] ommunity Question 1, thoughts 12:25:37 12:25:37 Heal of harming yourself family support 2017-08-02 2017-08-02 Pt. stated that [facility] 14:16:08 14:16:08 she lives with Health her mother. She moved back in with her around November of 2016. Pt. stated that she has two sisters and one brother. Only brother lives with them (21). she has stopped Sex Assigned At [birth year] [facility] 00:00:00 00:00:00 [facility] Center Smoking Status Start Date Stop Date Source Current every day smoker 2020-09-19 00:00:00 [facility] Occasional tobacco smoker 2019-11-13 12:47:24 [place] [facility] (finding) Medications Ordered Filled Start Stop Current [...] kg blood pressure, 2017-08-02 14:16:08 90 mm[Hg] [facility] diastolic Health blood pressure, 2017-08-02 14:16:08 134 mm[Hg] [facility] systolic Health pulse rate 2017-08-02 14:16:08 75 /min [facility] Health weight E&M 2017-08-02 14:16:08 116 [lb_av] [facility] weight in kilograms 2017-08-02 14:16:08 52.73 kg [facility] E&M Health height in 2017-08-02 14:16:08 157.48 cm [facility] centimeters E&M Health weight percentile 2017-08-02 14:16:08 30 [facility] height percentile 2017-08-02 14:16:08 19 [facility] Procedures Procedure Date / Time Performed Performing Clinician [facility] e Diagnostic evaluation 2017-08-03 15:59:23 Mary Kay Vasquez [facility] with medical - [id number] Health Plan of Care Planned Activity Planned Date Details Comments Source Future Scheduled 2021-11-11 INFLUENZA VACCINE (#1) [facility] 00:[facility]00 [code = INFLUENZA Medical Ce nter VACCINE (#1)] Future Scheduled 2021-11-11 INFLUENZA VACCINE (#1) [facility] 00:00:00 [code = INFLUENZA Medical Ce nter VACCINE (#1)] Future Scheduled 2021-09-[address] [facility] Test 00:00:00 [facility]ing [facility] Medical Cente r Screening (12+) [code = Tobacco Cessation Counseling and Screening (12+)] Future Scheduled 2021-03-[address] [facility] Test 00:00:00 (12+) [code = Medical Center DEPRESSION SCREENING (12+)] Future Scheduled 2021-03-[address] [facility] Test 00:00:00 (12+) [code = Medical Center DEPRESSION SCREENING (12+)] Future Scheduled 2019-11-[address] [facility] 00:00:00 [facility] cervix (procedure) [code = 675997775] Future Scheduled 2019-11-[address] [facility] Test 00:00:00 malignant neoplasm of Medica l Center cervix (procedure) [code = 263714656] Future Scheduled [address] [facility] Test 00:00:00 (procedure) [code = [facility] [id number]] Future Scheduled [address] [facility] Test 00:00:00 (procedure) [code = [facility] [id number]] Future Scheduled 2017 DTAP/TDAP/TD VACCINES [facility] 00:00:00 (1 - Tdap) [code = Medical C enter DTAP/TDAP/TD VACCINES (1 - Tdap)] Future Scheduled 2017 DTAP/TDAP/TD VACCINES [facility] 00:00:00 (1 - Tdap) [code = Medical C enter DTAP/TDAP/TD VACCINES (1 - Tdap)] Future Scheduled 2016 HEPATITIS C SCREENING [facility] 00:00:00 [code = HEPATITIS C Medical Center SCREENING] Future Scheduled 2016 HEPATITIS C [facility]CRE[facility]ING [facility] 00:00:00 [code = HEPATITIS C Medical Center SCREENING] Future Scheduled [address] [facility] Test 00:00:00 0-64 YRS (1 - PCV) Medical C enter [code = PNEUMOCOCCAL VACCINE 0-64 YRS (1 - PCV)] Future Scheduled [address] [facility] Test 00:00:00 0-64 YRS (1 - PCV) Medical C enter [code = PNEUMOCOCCAL VACCINE 0-64 YRS (1 - PCV)] Future Scheduled 2003-11-19 COVID-19 VACCINE (#1[facility] 00:00:00 [code = COVID-[address] VACCINE (#1)] Future Scheduled 1999-05-19 COVID-19 VACCINE (#1[facility] 00:00:00 [code = COVID-[address] VACCINE (#1)] Encounters Start End Encounter Admission Attending Care Care Encounter Source Date/Time Date/Time Type Type Clinicians Facility Department ID 2019-07-09 Inpatient HCANW SARI [id number] [facility] 21:31:00 71 [facility] [place] are Located within [facility] 2019-03-31 Inpatient HCANW SARI [id number] [facility] 19:38:00 48 [facility] [place] are Located within [facility] 2018-11-19 Outpatient [facility] [id number] [facility] 10:38:19 2020-09-19 2020-09-19 Emergency ER [facility] Emergency [id number] [facility] 17:07:00 17:07:00 2019-11-13 2019-11-13 Office Pedro [facility] Encounte r/ [facility] 00:00:00 00:00:00 Visit Mary Kay [id number] Com patrick [id number] [facility] 2019-10-11 2019-10-11 Office Pedro [facility] Encounte r/ Legacy 00:00:00 00:00:00 Visit Mary Kay [id number] Com patrick [id number] [facility] 2019-10-11 2019-10-11 Office Pedro [facility] Encounte r/ Legacy 00:00:00 00:00:00 Visit Mary Kay [id number] Com patrick [id number] [facility] 2019-10-09 2019-10-09 Office Mary Kay Vasquez [facility] Encounter/ Legacy 00:00:00 00:00:00 Visit Spike Santacruz [id number] Communi [id number] [facility] 2019-10-02 2019-10-02 [facility] Legacy 00:00:00 00:00:00 Visit Elisabet [id number] Com patrick [id number] [facility] 2019-10-01 2019-10-01 Office Pedro [facility] Encounte r/ Legacy 00:00:00 00:00:00 Visit Mary Kay [id number] Com patrick [id number] [facility] 2019-09-10 2019-09-10 Office CJ Vasquez [facility] Encounte r/ Legacy 00:00:00 00:00:00 Visit Mary Kay [id number] Com patrick [id number] [facility] 2019-07-29 2019-07-29 Office [facility]/ Legacy 00:00:00 00:00:00 Visit Elisabet [id number] Com patrick [id number] [facility] 2017-11-01 2017-11-01 Office Puma [facility] Encounter/ Legacy 00:00:00 00:00:00 Visit Elisabet [id number] Com patrick [id number] Health 2017-10-11 2017-10-11 Office Puma [facility] Encounter/ Legacy 00:00:00 00:00:00 Visit Elisabet [id number] Com patrick [id number] [facility] 2017-08-02 2017-08-02 Office Mary Kay Vasquez [facility] Encounter/ Legacy 00:00:00 00:00:00 Visit Patricia Villela [id number] Communi [id number] [facility] 2017-06-19 2017-06-19 Office Bee [facility] Encounter / Legacy 00:00:00 00:00:00 Visit Kim [id number] Co mmuni [id number] [facility] 2017-06-15 2017-06-15 Office Shashank [facility] Encounter/ Legacy 00:00:00 00:00:00 Visit Ernesto [id number] Co mmuni [id number] [facility] Results Test Description Test Time Test Comments Results Result [facility] e Comments - XR L-SPINE 2019-03-31 Patient Name: 4+VIEWS 20:08:00 MARTHA RAMIREZ Unit No: [id number] EXAMS: CPT: [id number] XR L-SPINE 4+VIEWS 14009 XR LUMBAR SPINE, 5 VIEWS HISTORY: Pain [...] (2010) BATCH NO: N/A Name: MARTHA RAMIREZ [facility] Phys: [id number] - Ollie Hernandez APR [address] : 2000 Age: 18 Sex: [place] [address] Loc: N.ERS Exam Date: 03/31/2019 Status: PRE ER PH: FAX: PAGE 1 Signed Report - XR HAND 3 + V LT 2018-07-06 Patient Name: 16:22:00 MARTHA RAMIREZ Unit No: [id number] EXAMS: CPT CODE: [id number] XR HAND 3 + [place] LT [address]994 LEFT HAND 3 VIEWS 07/06/2018 COMPARISON: None [...] Orig Print D/T: S: 07/06/2018 (1625) [facility] NAME: MARTHA RAMIREZ Radiology Department PHYS: Mayela Sexton [address] : 2000 AGE: 17 SEX: F [place], [place] [address] LOC: F.ERS PHONE #: [phone] EXAM DATE: 07/06/2018 STATUS: REG ER FAX #: [phone] RAD NO: Page 1 Signed Report - XR CHEST 1 V 2018-07-06 Patient Name: 16:06:00 MARTHA RAMIREZ Unit No: [id number] EXAMS: CPT CODE: [id number] XR CHEST 1 V [id number] CHEST 1 VIEW: 07/06/2018 COMPARISON: NONE CLINICAL [...] Land MD; Jeremiah Quintero MD Technologist: Karen Allen, RT, CT Trnscrbd D/ ([id number]) [email or web address] Orig Print D/T: S: 07/06/2018 (3896) [facility] NAME: MARTHA RAMIREZ Radiology Department PHYS: Mayela Sexton [address] : 2000 AGE: 17 SEX: F [place] [address] LOC: KRISSY PHONE #: [phone] EXAM DATE: 07/06/2018 STATUS: REG ER FAX #: [phone] RAD NO: Page 1 Signed Report XR Hand Complete 2018-05-19 Patient: MARTHA RAMIREZ 3+ Views Left 17:55:02 EMETERIO Date/Time05/19/2018 17:16 CSTReason for ExamFractureReportLOC ATION: [id number]: 17-year-old female who injured her left hand.COMMENT:Frontal, [...]
[2022-03-07] MEDS ORDERED: KETOROLAC 30 MG/ML INJ ONE (08:05)
[2022-03-07] MEDS ORDERED: HYDROCODONE/APAP 7.5/325 MG TAB ONE (08:05)
[2022-03-07 08:10] LABS: Urine Blood Negative (Negative); Urine Glucose Negative (Negative); Urine Protein Negative (Negative); Urine pH 6.5 (5.0-7.0)
[2022-03-07] MEDS ORDERED: ONDANSETRON 4 MG (ODT) TAB ONE (10:06)
--- NOTE | 2022-03-07 10:37 | RAD REPORT ---
EXAM DESCRIPTION: RAD - Sacrum And Coccyx - 03/07/2022 8:16 am CLINICAL HISTORY: PAIN COMPARISON: No comparisons FINDINGS: Symmetric bilateral sacroiliac joints are noted. Slight offset is noted at the level of th e sacrum junction with the coccyx. This may be a normal variant or related to trauma. Recommend nonem ergent MRI of the region for followup.
--- NOTE | 2022-03-07 10:57 | EDPHYS ---
Physician Documentation [facility] Name: Martha Mccracken Age: 21 yrs Sex: Female : 2000 Arrival Date: 03/07/2022 Time: 07:39 Bed 7 Private MD: [facility] Physician Rolando Beckman HPI: 03/07 10:12 This 21 yrs old Black Female presents to ER via Ambulatory with complaints of Back Pain.kb 10:12 The patient presents with pain that is acute. The symptoms are located in the coccyx kb area. Onset: The symptoms/episode began/occurred this morning. The pain does not radiate. Associated signs and symptoms: The patient has no apparent associated signs or symptoms. The problem was sustained during a fall. Modifying factors: The patient symptoms are alleviated by nothing, the patient symptoms are aggravated by any movement. Severity of symptoms: At their worst the symptoms were moderate, in the emergency department the symptoms are unchanged. The patient has not experienced similar symptoms in the past. The patient has not recently seen a physician. Pt reports she woke up with pain to coccyx area. States she fell 2 days ago onto buttocks, but did not have pain then. Denies urinary symptoms. 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 - Social history:: Smoking status: Patient reports the use of cigarette tobacco products, smokes one-half pack cigarettes per day, Patient uses alcohol, occasionally. ROS: 10:11 Constitutional: Negative for fever, chills, and weight loss. kb 10:11 Back: Positive for pain at rest, pain with movement, of the lumbar area and sacrum. 10:11 All other systems are negative. Exam: 10:11 Constitutional: This is a well developed, well nourished patient who is awake, alert, kb and in no acute distress. Head/Face: Normocephalic, atraumatic. ENT: Moist Mucous membranes Chest/axilla: Normal chest wall appearance and motion. Cardiovascular: Regular rate and rhythm with a normal S1 and S2. No gallops, murmurs, or rubs. No pulse deficits. Respiratory: Respirations even and unlabored. No increased work of breathing. Talking in full sentences Abdomen/GI: Soft, non-tender. No distention Skin: Warm, dry with normal turgor. Normal color. MS/ Extremity: Pulses equal, no cyanosis. Neurovascular intact. Full, normal range of motion. Neuro: Awake and alert, GCS 15, oriented to person, place, time, and situation. Moves all extremities. Normal gait. Psych: Awake, alert, with orientation to person, place and time. Behavior, mood, and affect are within normal limits. 10:11 Back: pain, that is moderate, of the lumbar area and sacrum, ROM is painful, normal spinal alignment noted. Vital Signs: 07:49 BP 154 / 102; Pulse 78; Resp 16; Temp 98.4(O); Pulse Ox 100% on R/A; Weight 63.5 kg; ld1 Height 5 ft. 3 in. (160.02 cm); Pain 7/10; 11:03 BP 155 / 99; Pulse 77; Resp 15; Pulse Ox 100% ; Pain 0/10; ll1 07:49 Body Mass Index 24.80 (63.50 kg, 160.02 cm) ld1 MDM: 07:47 Patient medically screened. kb 10:11 Data reviewed: vital signs, nurses notes. Data interpreted: Pulse oximetry: on room air kb is 100 %. Interpretation: normal. ED course: Awaiting radiologist's report of x-ray. Pt informed. . 10:56 Counseling: I had a detailed discussion with the patient and/or guardian regarding: the kb historical points, exam findings, and any diagnostic results supporting the discharge/admit diagnosis, radiology results, the need for outpatient follow up, a family practitioner, to return to the emergency department if symptoms worsen or persist or if there are any questions or concerns that arise at home. 03/07 08:09 Order name: Urine --Ancillary (enter results); Complete Time: 08:44 em1 03/07 08:10 Order name: Urine Dipstick-Ancillary; Complete Time: 08:13 EDMS 03/07 07:51 Order name: Sacrum And Coccyx XRAY; Complete Time: 10:37 kb 03/07 07:51 Order name: Urine Dipstick-Ancillary (obtain specimen); Complete Time: 08:09 kb 03/07 07:51 Order name: Urine Test (obtain specimen); Complete Time: 08:09 kb Administered Medications: 08:04 Drug: Ketorolac 30 mg Route: IM; Site: right gluteus; ll1 10:35 Follow up: Response: No adverse reaction; Pain is decreased; RASS: Alert and Calm (0) ll1 08:10 Drug: [place] (HYDROcodone-acetaminophen) (7.5 mg-325 mg) 1 tabs {Note: rass 0, pain ll1 10.} Route: PO; 10:35 Follow up: Response: No adverse reaction; Pain is decreased; RASS: Alert and Calm (0) ll1 10:05 Drug: Zofran (Ondansetron) 4 mg Route: PO; ll1 10:35 Follow up: Response: No adverse reaction; Nausea is decreased ll1 Disposition Summary: 03/07/22 10:56 Discharge Ordered Location: Home kb Condition: Stable kb Diagnosis - Low back pain kb Followup: kb - With: Emergency Department - When: As needed - Reason: Worsening of condition Followup: kb - With: Private Physician - When: 2 - 3 days - Reason: Recheck today's complaints, Continuance of care, Re-evaluation by your physician Discharge Instructions: - Musculoskeletal Pain kb - Discharge Summary Sheet ll1 Forms: - Medication Reconciliation Form kb - Thank You Letter kb - Work release form ll1 - Antibiotic Education kb - Prescription Opioid Use kb Prescriptions: - Ibuprofen 600 mg Oral Tablet - take 1 tablet by ORAL route every 6 hours As needed take with food; 30 tablet; kb Refills: 0, Product Selection Permitted - orphenadrine citrate 100 mg Oral Tablet Sustained Release - take 1 tablet by ORAL route 2 times per day As needed; 20 tablet; Refills: 0, kb Product Selection Permitted Signatures: Dispatcher [employer] Gianna Freire FNP-C FNP-Lisseth Burdick RN RN ll1 Tatyana King RN RN ld1
--- NOTE | 2022-03-07 10:57 | ER ---
Nurse's Notes [facility] Name: Martha Mccracken Age: 21 yrs Sex: Female : 2000 Arrival Date: 03/07/2022 Time: 07:39 Bed 7 Private MD: Diagnosis: Low back pain Presentation: 03/07 07:49 Chief complaint: Patient states: TEJ lower back pain - fell a couple of days ago, but ld1 pain began this morning. Coronavirus screen: At this time, the client does not indicate any symptoms associated with coronavirus-19. Ebola Screen: No symptoms or risks identified at this time. Initial Sepsis Screen: Does the patient meet any 2 criteria? No. Patient's initial sepsis screen is negative. Does the patient have a suspected source of infection? No. Patient's initial sepsis screen is negative. Risk Assessment: Do you want to hurt yourself or someone else? Patient reports no desire to harm self or others. Onset of symptoms was March 07, 2022. 07:49 Method Of Arrival: Ambulatory ld1 07:49 Acuity: ЕЛЕНА 4 ld1 Triage Assessment: 07:51 General: Appears in no apparent distress. uncomfortable, Behavior is calm, cooperative, ld1 appropriate for age. Pain: Complains of pain in buttocks Pain does not radiate. Pain currently is 7 out of 10 on a pain scale. EENT: No signs and/or symptoms were reported regarding the EENT system. Neuro: Level of Consciousness is awake, alert, obeys commands, Oriented to person, place, time, situation. Cardiovascular: Capillary refill < 3 seconds Patient's skin is warm and dry. Respiratory: Airway is patent Respiratory effort is even, unlabored. GI: Abdomen is flat, non-distended. : No signs and/or symptoms were reported regarding the genitourinary system. Derm: No signs and/or symptoms reported regarding the dermatologic system. Musculoskeletal: Range of motion: intact in all extremities, Reports pain in buttocks. 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 - Social history:: Smoking status: Patient reports the use of cigarette tobacco products, smokes one-half pack cigarettes per day, Patient uses alcohol, occasionally. Screenin:55 Abuse screen: Denies threats or abuse. Nutritional screening: No deficits noted. ll1 Tuberculosis screening: No symptoms or risk factors identified. 11:00 [facility] ED Fall Risk Assessment (Adult) Impaired Gait Yes (1 pt) Score/Fall Risk Level ll1 0 - 2 = Low Risk Oriented to surroundings, Maintained a safe environment, Educated pt \T\ family on fall prevention, incl call for assistance when getting out of bed, Hourly rounding (assess needs \T\ fall precautionary measures) done. Assessment: 08:10 Reassessment: No changes from previously documented assessment. Patient and/or family ll1 updated on plan of care and expected duration. Pain level reassessed. Patient is alert, oriented x 3, equal unlabored respirations, skin warm/dry/pink. 09:10 Reassessment: No changes from previously documented assessment. Patient and/or family ll1 updated on plan of care and expected duration. Pain level reassessed. 10:00 Reassessment: No changes from previously documented assessment. Patient and/or family ll1 updated on plan of care and expected duration. Pain level reassessed. Patient is alert, oriented x 3, equal unlabored respirations, skin warm/dry/pink. 11:00 Reassessment: No changes from previously documented assessment. Patient and/or family ll1 updated on plan of care and expected duration. Pain level reassessed. Patient is alert, oriented x 3, equal unlabored respirations, skin warm/dry/pink. Vital Signs: 07:49 BP 154 / 102; Pulse 78; Resp 16; Temp 98.4(O); Pulse Ox 100% on R/A; Weight 63.5 kg; ld1 Height 5 ft. 3 in. (160.02 cm); Pain 7/10; 11:03 BP 155 / 99; Pulse 77; Resp 15; Pulse Ox 100% ; Pain 0/10; ll1 07:49 Body Mass Index 24.80 (63.50 kg, 160.02 cm) ld1 ED Course: 07:39 Patient arrived in ED. rg4 07:44 Gianna Brooks [facility]-C [facility]. kb 07:44 Rolando Beckman MD is Attending Physician. kb 07:49 Tatyana King, RN is Primary Nurse. ld1 07:51 Triage completed. ld1 07:51 Arm band placed on right wrist. ld1 08:16 Lisseth Mix, RN is Primary Nurse. ll1 08:18 Sacrum And Coccyx XRAY In Process Unspecified. EDMS 09:55 Patient has correct armband on for positive identification. Bed in low position. Call ll1 light in reach. Side rails up X 1. Cardiac monitoring not applicable on this patient. 11:00 No provider procedures requiring assistance completed. Patient did not have IV access ll1 during this emergency room visit. Administered Medications: 08:04 Drug: Ketorolac 30 mg Route: IM; Site: right gluteus; ll1 10:35 Follow up: Response: No adverse reaction; Pain is decreased; RASS: Alert and Calm (0) ll1 08:10 Drug: [place] (HYDROcodone-acetaminophen) (7.5 mg-325 mg) 1 tabs {Note: rass 0, pain ll1 1010.} Route: PO; 10:35 Follow up: Response: No adverse reaction; Pain is decreased; RASS: Alert and Calm (0) ll1 10:05 Drug: Zofran (Ondansetron) 4 mg Route: PO; ll1 10:35 Follow up: Response: No adverse reaction; Nausea is decreased ll1 Medication: 09:55 VIS not applicable for this client. ll1 Outcome: 10:56 Discharge ordered by . kb 11:00 Discharged to home ambulatory. ll1 11:00 Condition: stable 11:00 Discharge instructions given to patient, Instructed on discharge instructions, follow up and referral plans. medication usage, Demonstrated understanding of instructions, follow-up care, medications, Prescriptions given X 2. 11:06 Patient left the ED. ll1 Signatures: Dispatcher [employer] [facility] Gianna Brooks, HIGH SPEED OPERATOR-C HIGH SPEED OPERATOR-Purnima Riggs rg4 Lisseth Mix, RN RN ll1 Tatyana King, RN RN ld1
[2022-03-07 11:14] VITALS: TEMP 98.4; O2SAT 100
[2022-03-07 11:15] VITALS: BP 155/99
== END 2022-03-07 11:06 | disposition home or self-care (01) ==
LOC: ER 07:36
DX: M54.50 Low back pain, unspecified (principal); F17.210 Nicotine dependence, cigarettes, uncomplicated
CPT/HCPCS: 81025; 81003; 72220; Q0162; 96372; 99283

== ENCOUNTER 2022-08-07 21:40 | Emergency (ER) | payer OTHER ==
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
--- NOTE | 2022-08-07 23:43 | ER ---
Nurse's Notes [facility] Name: Martha Mccracken Age: 21 yrs Sex: Female : 2000 Arrival Date: 08/07/2022 Time: 21:40 Bed IW2 Private MD: Diagnosis: Presentation: 08/07 22:07 Chief complaint: Patient states: right side face sinus pressure with headache of pf1 7,onset 1830 with vomiting x 2. Coronavirus screen: Vaccine status: Patient reports receiving the 2nd dose of the covid vaccine. [place]. Coronavirus screen: Client denies travel out of the [place] in the last 14 days. Client presents with at least one sign or symptom that may indicate coronavirus-19. Ebola Screen: Patient negative for fever greater than or equal to 101.5 degrees Fahrenheit, and additional compatible Ebola Virus Disease symptoms. Initial Sepsis Screen: Does the patient meet any 2 criteria? No. Patient's initial sepsis screen is negative. Does the patient have a suspected source of infection? No. Patient's initial sepsis screen is negative. Risk Assessment: Do you want to hurt yourself or someone else? Patient reports no desire to harm self or others. 22:07 Method Of Arrival: Ambulatory pf1 22:07 Acuity: ЕЛЕНА 3 pf1 Historical: - Allergies: 22:17 Latex, Natural Rubber; pf1 - PMHx: 22:17 scoliosis; polycystic kidney; sinus headache; pf1 - PSHx: 22:17 None; pf1 - Immunization history:: Adult Immunizations up to date, Client reports receiving the 2nd dose of the Covid vaccine, Last tetanus immunization: < 10 years ago Flu vaccine is not up to date. - Social history:: Smoking status: Patient reports the use of cigarette tobacco products, smokes one-half pack cigarettes per day, Patient uses alcohol, but reports only rare drinking. Patient/guardian denies using street drugs. Assessment: 23:30 General: called from lobby, no response. pf1 Vital Signs: 22:07 BP 151 / 99; Pulse 68; Resp 18; Temp 98.1; Pulse Ox 100% on R/A; Weight 59.87 kg; pf1 Height 5 ft. 0 in. ; Pain 7/10; 22:07 Body Mass Index 25.78 (59.87 kg, 152.4 cm) pf1 22:07 Pain Scale: Adult pf1 ED Course: 21:42 Patient arrived in ED. ja2 21:57 Rolando Calvillo PA is PHCP. cp 21:57 Yaya Davenport MD is Attending Physician. cp 22:17 Triage completed. pf1 Administered Medications: No medications were administered Outcome: 23:30 Eloped from waiting room, before seeing physician Time discovered patient gone: August 07, pf1 2022 at 23:30 23:43 Patient left the ED. pf1 Signatures: Rolando Calvillo PA PA cp Alexander, Jessica ja2 Gris Parnell, RN RN pf1
[2022-08-08 00:45] VITALS: BP 151/99; TEMP 98.1; O2SAT 100
== END 2022-08-07 23:43 | disposition left against medical advice (07) ==
LOC: ER 21:40
DX: Z53.21 Procedure and treatment not carried out due to patient leaving prior to being seen by health care provider (principal)
CPT/HCPCS: 99281

== ENCOUNTER 2022-09-07 20:06 | Emergency (ER) | payer OTHER ==
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
[2022-09-07] MEDS ORDERED: LIDOCAINE 1% 20 ML MDV ONE (20:51)
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
--- NOTE | 2022-09-07 21:09 | ER ---
Nurse's Notes [facility] Name: Martha Mccracken Age: 21 yrs Sex: Female : 2000 Arrival Date: 09/07/2022 Time: 20:06 Bed 7 Private MD: Diagnosis: Laceration without foreign body of right forearm Presentation: 09/07 20:15 Chief complaint: Patient states: pt cut her arm on a window. pt has laceration to right as6 forearm. Coronavirus screen: At this time, the client does not indicate any symptoms associated with coronavirus-19. Ebola Screen: No symptoms or risks identified at this time. Risk Assessment: Do you want to hurt yourself or someone else? Patient reports no desire to harm self or others. Onset of symptoms was September 07, 2022. 20:15 Method Of Arrival: Ambulatory as6 20:15 Acuity: ЕЛЕНА 4 as6 21:23 Complicating Factors: There are no complicating factors for this patient. Initial lg3 Sepsis Screen: Does the patient meet any 2 criteria? No. Patient's initial sepsis screen is negative. Does the patient have a suspected source of infection? No. Patient's initial sepsis screen is negative. Triage Assessment: 20:17 General: Appears in no apparent distress. Behavior is calm, cooperative. Pain: as6 Complains of pain in palmar aspect of right forearm. Injury Description: Laceration sustained to palmar aspect of right forearm is clean, 0.5 to 2.5 cm long, is bleeding a small amount. 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 - Social history:: Smoking status: Patient reports the use of cigarette tobacco products, smokes one-half pack cigarettes per day. - Family history:: not pertinent. Screenin:20 [facility] ED Fall Risk Assessment (Adult) History of falling in the last 3 months, lg3 including since admission No falls in past 3 months (0 pts). Abuse screen: Denies threats or abuse. Denies injuries from another. Nutritional screening: No deficits noted. Tuberculosis screening: No symptoms or risk factors identified. Assessment: 21:20 General: Appears in no apparent distress. comfortable, Behavior is calm, cooperative. lg3 Pain: Complains of pain in palmar aspect of right forearm Pain currently is 4 out of 10 on a pain scale. Neuro: No deficits noted. Titus Agitation-Sedation Scale (RASS): 0 - Alert and Calm Level of Consciousness is awake, alert, obeys commands, Oriented to person, place, time, situation. Cardiovascular: No deficits noted. Denies chest pain, shortness of breath, Capillary refill < 3 seconds Clubbing of nail beds is absent JVD is absent Patient's skin is warm and dry. Respiratory: No deficits noted. Airway is patent Respiratory effort is even, unlabored, Respiratory pattern is regular, symmetrical. GI: No deficits noted. No signs and/or symptoms were reported involving the gastrointestinal system. Abdomen is flat, non-distended. : No deficits noted. No signs and/or symptoms were reported regarding the genitourinary system. EENT: No deficits noted. No signs and/or symptoms were reported regarding the EENT system. Derm: Skin is intact, is healthy with good turgor, Skin is dry, Skin is normal, Skin temperature is warm Wound noted palmar aspect of right forearm. Musculoskeletal: No deficits noted. No signs and/or symptoms reported regarding the musculoskeletal system. Circulation, motion, and sensation intact. Range of motion: intact in all extremities. Injury Description: Laceration sustained to palmar aspect of right forearm is clean. Vital Signs: 20:15 BP 171 / 111; Pulse 78; Resp 18 S; Temp 97.2(TE); Pulse Ox 100% on R/A; Weight 66.68 kg as6 (R); Height 5 ft. 2 in. (R); Pain 6/10; 21:20 BP 164 / 89; Pulse 79; Resp 17 S; Pulse Ox 100% on R/A; lg3 20:15 Body Mass Index 26.89 (66.68 kg, 157.48 cm) as6 20:15 Pain Scale: Adult as6 ED Course: 20:09 Patient arrived in ED. es 20:10 John Manning MD is Attending Physician. sp4 20:17 Triage completed. as6 20:17 Arm band placed on. as6 21:13 Garcia, Raissa, RN is Primary Nurse. lg3 21:20 Patient has correct armband on for positive identification. Bed in low position. Call lg3 light in reach. Side rails up X 1. Client placed on continuous cardiac and pulse oximetry monitoring. NIBP monitoring applied. Door closed. Noise minimized. Warm blanket given. Family accompanied patient. 21:20 Assist provider with laceration repair on palmar aspect of right forearm using sutures. lg3 Set up tray. Performed by John Manning MD Dressed with 4X4s, Kerlix, Neosporin, Patient tolerated well. Patient did not have IV access during this emergency room visit. Administered Medications: 21:15 Drug: Ibuprofen PO 800 mg Route: PO; lg3 21:20 Follow up: Response: No adverse reaction lg3 21:15 Drug: Acetaminophen PO 1000 mg Route: PO; lg3 21:20 Follow up: Response: No adverse reaction lg3 21:20 Drug: Lidocaine Infiltration (1 %) 20 ml Volume: 20 ml; Route: Infiltration; lg3 Medication: 21:20 VIS not applicable for this client. lg3 Outcome: 21:09 Discharge ordered by . sp4 21:20 Discharged to home ambulatory. lg3 21:20 Condition: stable 21:20 Discharge instructions given to patient, Instructed on discharge instructions, follow up and referral plans. wound care, Demonstrated understanding of instructions, follow-up care, wound care. 21:24 Patient left the ED. lg3 Signatures: Joyce Dailey Lacie, RN RN lg3 Murali Gonsales, TENA RN as6 John Manning MD MD sp4
[2022-09-07] MEDS ORDERED: ACETAMINOPHEN 500 MG TAB ONE (21:23)
[2022-09-07] MEDS ORDERED: IBUPROFEN 400 MG TAB ONE (21:23)
[2022-09-07 21:40] VITALS: TEMP 97.2; O2SAT 100
[2022-09-07 21:42] VITALS: BP 164/89
== END 2022-09-07 21:24 | disposition home or self-care (01) ==
LOC: ER 20:06
PROC: 0HQDXZZ Repair Right Lower Arm Skin, External Approach (ICD-10-PCS; principal; 2022-09-07)
DX: S51.811A Laceration without foreign body of right forearm, initial encounter (principal); F17.210 Nicotine dependence, cigarettes, uncomplicated; Z91.040 Latex allergy status; Z91.048 Other nonmedicinal substance allergy status
CPT/HCPCS: 12001; J2001; 99283